=== PATIENT | female | born 2000 | race Two or more races ===

== ENCOUNTER 2024-10-23 11:39 | Emergency (ER) | payer OTHER ==
[~2024-10-23] VITALS: Ht 162.6 cm; Wt 54.4 kg
[2024-10-23] MEDS ORDERED: ONDANSETRON HCL 2 MG/ML VIAL ONE (12:51)
[2024-10-23] MEDS ORDERED: KETOROLAC TROMETHAMINE 30 MG VIAL ONE (12:51)
[2024-10-23] MEDS ORDERED: ONDANSETRON HCL 2 MG/ML VIAL IV ONE (13:00)
[2024-10-23] MEDS ORDERED: KETOROLAC TROMETHAMINE 30 MG VIAL IV ONE (13:00)
[2024-10-23] MEDS ORDERED: 0.9 % SODIUM CHLORIDE 1,000 ML IV SCH (13:00)
[2024-10-23 13:13] LABS: BASO % 0.4 % (0.1-1.2); EOS # 0.09 (0.04-0.54); EOS % 1.3 % (0.7-7.0); LYMPH # 2.15 (1.18-3.74); LYMPH % 30.8 % (19.3-53.1); MEAN PLATELET VOLUME 9.30 fl (9.4-12.4); MONO # 0.61 (0.24-0.82); MONO % 8.7 % (4.7-12.5); NEUT # 4.08 (1.56-6.13); NEUT % 58.5 % (34.0-71.1); RED CELL DISTRIBUTION WIDTH 13.2 % (11.6-14.4)
[2024-10-23 13:35] LABS: INR 1.04
[2024-10-23 13:39] LABS: ALT/SGPT 12.0 U/L (12-78); AST/SGOT 10.0 U/L (15-37); BILIRUBIN TOTAL 0.14 mg/dL (0.3-1.2); BUN CREA RATIO 16.0 (7.0-25.0); CREATININE SERUM 0.62 mg/dL (0.55-1.02); GFR 117.28; GLOBULINA 3.3 G/DL (2.4-3.5); GLUCOSE FASTING 82.0 mg/dL (65-100); OSMOLALITY SERUM 278.0 MOSM/KG (275-295)
[2024-10-23 13:53] LABS: URINE BACTERIA 2221.1 uL (0.0-1933); URINE EPITHELIAL CELLS 57.0 uL (0.0-38.8); URINE RBC 26.5 uL (0.0-20.8); URINE WBC 39.0 uL (0.0-23.2)
[2024-10-23 14:00] LABS: URINE APPEARANCE Clear; URINE BILIRRUBIN Negative (NEGATIVE); URINE BLOOD Negative; URINE CAST 0.00 uL (0.0-1.40); URINE COLOR Yellow; URINE GLUCOSE Negative (NEGATIVE); URINE KETONE Trace (NEGATIVE); URINE LEUKOCYTE Trace; URINE NITRATE Negative; URINE PROTEIN Negative (NEGATIVE); URINE UROBILINOGEN 1.0 E.U./dl
[2024-10-23] MEDS ORDERED: ONDANSETRON ODT8 MG PO (15:35)
[2024-10-23] MEDS ORDERED: PRENATAL + DHA1 EAC1 PO (15:35)
[2024-10-23] MEDS ORDERED: CEFTRIAXONE SODIUM 1,000 MG VIAL ONE (15:36)
[2024-10-23] MEDS ORDERED: MACROBID 100 M100 MG PO (15:40)
[2024-10-23] MEDS ORDERED: CEFTRIAXONE SODIUM 1,000 MG VIAL IV ONE (15:45)
== END 2024-10-23 15:54 | disposition home or self-care (01) ==
LOC: ER 11:39
PROVIDERS: General Practice
DX: R10.2 Pelvic and perineal pain (principal); O23.30 Infections of other parts of urinary tract in pregnancy, unspecified trimester; N39.0 Urinary tract infection, site not specified

== ENCOUNTER 2024-10-28 18:37 | Emergency (ER) | payer OTHER ==
[~2024-10-28] VITALS: Ht 162.6 cm; Wt 56.7 kg
[~2024-10-28 18:37] MED LIST: MACROBID 100 M100 MG PO; ONDANSETRON ODT8 MG PO; PRENATAL + DHA1 EAC1 PO
[2024-10-28] MEDS ORDERED: KETOROLAC TROMETHAMINE 30 MG VIAL IV STA (19:28)
[2024-10-28] MEDS ORDERED: FAMOTIDINE/PF 20 MG/2 ML VIAL IV STA (19:28)
[2024-10-28] MEDS ORDERED: RINGERS SOLUTION,LACTATED 1,000 ML IV STA (19:29)
[2024-10-28 21:22] LABS: BASO % 0.5 % (0.1-1.2); EOS # 0.12 (0.04-0.54); EOS % 1.6 % (0.7-7.0); LYMPH # 2.69 (1.18-3.74); LYMPH % 35.1 % (19.3-53.1); MEAN PLATELET VOLUME 9.20 fl (9.4-12.4); MONO # 0.60 (0.24-0.82); MONO % 7.8 % (4.7-12.5); NEUT # 4.19 (1.56-6.13); NEUT % 54.6 % (34.0-71.1); RED CELL DISTRIBUTION WIDTH 13.2 % (11.6-14.4)
[2024-10-28 21:42] LABS: BUN CREA RATIO 19.0 (7.0-25.0); CREATININE SERUM 0.69 mg/dL (0.55-1.02); GFR 103.66; GLUCOSE FASTING 93.0 mg/dL (65-100); OSMOLALITY SERUM 275.0 MOSM/KG (275-295)
[2024-10-29 04:20] LABS: URINE APPEARANCE Cloudy; URINE BILIRRUBIN Negative (NEGATIVE); URINE BLOOD Negative; URINE COLOR Yellow; URINE GLUCOSE Negative (NEGATIVE); URINE KETONE Trace (NEGATIVE); URINE LEUKOCYTE Negative; URINE NITRATE Negative; URINE PROTEIN Negative (NEGATIVE); URINE UROBILINOGEN 1.0 E.U./dl
[2024-10-29 04:25] LABS: URINE BACTERIA 381.5 uL (0.0-1933); URINE EPITHELIAL CELLS 74.4 uL (0.0-38.8); URINE RBC 9.0 uL (0.0-20.8); URINE WBC 35.2 uL (0.0-23.2)
[2024-10-29 04:31] LABS: URINE CAST 0.14 uL (0.0-1.40)
== END 2024-10-29 04:44 ==
LOC: ER 21:21
PROVIDERS: General Practice
DX: O26.892 Other specified pregnancy related conditions, second trimester (principal); N39.0 Urinary tract infection, site not specified; Z3A.01 Less than 8 weeks gestation of pregnancy